=== PATIENT | female | born 1970 | race African-American/Black ===

== ENCOUNTER 2020-01-31 13:10 | Emergency (ER) | payer OTHER, SELFPAY ==
--- NOTE | ~2020-01-31 | XR_ITS ---
XR abdomen/kub 1V DATE: 01/31/2020 14:50 INDICATION: Right abdominal pain. Nausea and vomiting. TECHNIQUE: AP projection, 2 views COMPARISON: 02/20/2006 KUB FINDINGS: IUD overlies the pelvis. No bowel obstruction. The psoas shadows are intact. No viscerom egaly is detected. No apparent urinary tract calcification. No other significant abnormal calcificati on including any calcified appendicolith. Included skeletal structures are unremarkable. The lung bases appear clear. Heart size appears normal. IMPRESSION: IUD Nonspecific abdomen Reviewed, dictated and finalized at [facility]. Reviewed, dictated and finalized at location [facility]. IMPRESSION: IUD Nonspecific abdomen
[2020-01-31 13:31] VITALS: BP 149/93; PULSE 71; RESP 18; TEMP 36.3; O2SAT 100
--- NOTE | 2020-01-31 14:53 | ED.GENADULT ---
HPI - General Adult General Chief complaint: Abdominal Pain Stated complaint: stomach cramps,nausea Time Seen by Provider: 01/31/20 14:53 History of Present Illness HPI narrative: 49-year-old -[place] female presents with complaints of diffused RT abdomen pain with nausea and vomiting for the past 7 hours. Tylenol at noon without relief. Pain increased throughout the day with ball of cramps to right upper quadrant radiating to back intermittently. No significant pelvic pain. No vaginal discharge. No concerns for a STD. No fever or chills. No flank pain. Exacerbating factors consist of eating and drinking. Denies dysuria, hematuria, and vaginal bleeding. No blood in stool, and constipation. Last BM was 01/31/20, small amount and 01/30/04 normal per [place]. No cough or dyspnea. Denies chest pain, back pain, headache, and dizziness. Urine output within normal limits. LPM, unknown due to IUD in place. The patient reports she have not been diagnosed with COVID-19. The patient reports she is not waiting for the results of a COVID-19 lab test. The patient reports she do not have fever, chills, weakness, fatigue, or myalgia. The patient reports she do not have a new or worsening cough or shortness of breath. Denies chest pain. The patient reports she do not have any rhinorrhea, congestion, sore throat, and diarrhea. Denies recent traveling. Denies concerns for COVID-19 or exposures been home since [id number] order except for essential household needs, working, and return home. At this time, patient is not suspected of having COVID-19. Some parts of this dictation were generated by voice recognition software and may contain typographical and/or grammatical inaccuracies. Related Data Home Medications Medication Instructions Recorded Confirmed azelastine 137 mcg (0.1 %) nasal 137 mcg NASAL Q12H 09/17/19 spray aerosol cetirizine 10 mg tablet 10 mg PO DAILY 09/17/19 fluticasone propionate 50 1 spray NASAL BID 09/17/19 mcg/actuation nasal spray,suspension hydralazine 25 mg tablet 25 mg PO TID 09/17/19 metoprolol tartrate 25 mg tablet 25 mg PO DAILY 09/17/19 09/17/19 spironolactone 25 mg tablet 25 mg PO DAILY 09/17/19 09/17/19 irbesartan-hydrochlorothiazide tablet 01/31/20 losartan-hydrochlorothiazide tablet 01/31/20 meloxicam 01/31/20 rosuvastatin mg 01/31/20 sitagliptin-metformin [Janumet] tablet 01/31/20 Allergies Allergy/AdvReac Type Severity Reaction Status Date / Time Penicillins Allergy Mild hives Verified 09/17/19 13:28 Review of Systems Review of Systems: Narrative: CONSTITUTIONAL: Denies fever, chills, sweats. EYES: Denies visual changes, redness, discharge. ENT: Denies rhinorrhea, congestion, sore throat, otalgia. CARDIOVASCULAR: Denies chest pain, palpitations, edema. RESPIRATORY: Denies dyspnea, wheezing, cough. GASTROINTESTINAL: Complains of diffused RT abdominal pain, nausea, vomiting. Denies diarrhea. GENITOURINARY: Denies dysuria, hematuria, abnormal discharge. SKIN: Denies rash or itching. MUSCULOSKELETAL: Denies acute back pain, joint pain, or myalgia. NEUROLOGIC: Denies numbness or focal weakness. PSYCHIATRIC: Denies anxiety or depression. All other systems reviewed are negative, except as documented in HPI and below. [facility] Past Medical History Medical History (Updated 02/01/20 @ 00:01 by Wagner Baptiste) Benign reactive hypertension Borderline type 2 diabetes mellitus Mixed hyperlipidemia MVP (mitral valve prolapse) Surgical History Surgical History (Updated 01/31/20 @ 15:35 by RITA Peña) No significant past surgical history Family History Family History Father Hypertension Family history of lung cancer, Onset Age: 56 Patient's father is Mother Hypertension Sibling Family history of diabetes mellitus in first degree relative Grandparent Family histo
[2020-01-31] MEDS: ONDANSETRON HCL ODT 4 MG TABLET PO (15:09)
[2020-01-31] MEDS: KETOROLAC (*BKC) 60 MG/2 ML VIAL IM (15:31)
[2020-01-31 15:38] LABS: Glucose Point of Care 227 (65-105)
--- NOTE | 2020-01-31 16:28 | PC.NURSE ---
[facility] pharmacy called and rx ordered.
== END 2020-01-31 16:14 | disposition home or self-care (01) ==
PROVIDERS: Emergency Provider Nurse Practitioner Family; PCP Family Medicine
DX: K52.9 Noninfective gastroenteritis and colitis, unspecified (principal); R10.84 Generalized abdominal pain; I10 Essential (primary) hypertension; R73.03 Prediabetes; E78.2 Mixed hyperlipidemia; I34.1 Nonrheumatic mitral (valve) prolapse
CPT/HCPCS: 74018; 81003; 82948; 96372; 99213; A9270; G0463; J1885

== ENCOUNTER 2020-09-11 11:00 | Outpatient (RCR) | payer OTHER, SELFPAY ==
[2020-09-11 11:07] VITALS: BMI 47.3
[2020-09-11 12:15] VITALS: BMI 47.3
== END 2020-11-24 14:06 | disposition home or self-care (01) ==
LOC: ANHDMC 11:00
PROVIDERS: PCP Family Medicine; Visit Provider Family Medicine
DX: E11.65 Type 2 diabetes mellitus with hyperglycemia (principal); Z71.89 Other specified counseling; Z71.3 Dietary counseling and surveillance
CPT/HCPCS: 97802; G0108

== ENCOUNTER 2020-10-13 08:57 | Outpatient (CLI) | payer OTHER, SELFPAY ==
--- NOTE | ~2020-10-13 | MM_ITS ---
EXAMINATION: MM screening shellie BI w perez HISTORY: Screening TECHNIQUE: Craniocaudal and mediolateral oblique 3-D tomosynthesis images were obtained and synthetic 2-D images were generated. CAD analysis was submitted and interpreted. COMPARISON: Comparison to multiple prior studies sequentially, with oldest reviewed study dated 03/25. BREAST PARENCHYMAL COMPOSITION: The breasts are heterogenously dense, which may obscure small masses. FINDINGS: There is no evidence of suspicious mass, calcification, or architectural distortion to sugg est malignancy in either breast. There has been no suspicious interval change. IMPRESSION: 1. No mammographic evidence of malignancy. 2. Recommend routine screening mammography in one year. BI-RADS Category 1: Negative Reviewed, dictated and finalized at location [facility]. [employer] [employer]FFER
== END 2020-10-13 08:58 | disposition home or self-care (01) ==
LOC: ANHIMG 09:01
PROVIDERS: PCP Family Medicine; Visit Provider Family Medicine
DX: Z12.31 Encounter for screening mammogram for malignant neoplasm of breast (principal)
CPT/HCPCS: 77063; 77067

== ENCOUNTER 2021-03-31 12:24 | Outpatient (RCR) | payer OTHER, SELFPAY ==
[2021-03-31 12:51] VITALS: BMI 44.6
[2021-03-31 12:52] VITALS: BMI 44.6
== END 2021-06-24 11:51 | disposition home or self-care (01) ==
LOC: ANHDMC 12:24
PROVIDERS: PCP Family Medicine; Visit Provider Family Medicine
DX: E11.65 Type 2 diabetes mellitus with hyperglycemia (principal); Z71.3 Dietary counseling and surveillance
CPT/HCPCS: 97803

== ENCOUNTER 2021-08-17 01:35 | Day surgery (SDC) | payer OTHER, SELFPAY ==
[2021-08-07 09:30] VITALS: BMI 43.7
--- NOTE | 2021-08-14 18:54 | WPDANESEPPF ---
Anes - Initial Pre Proc Eval Procedure: Operation Date: 08/17/21 08:00 Proposed Procedures p Screening Colonoscopy - Joseph Melara MD Date/Time: 08/14/21 18:54 Surgeon: Joseph Melara MD Pre Op Diagnosis: neoplasm screening Patient Data Age: 50 Gender: F Height: 1.68 m Weight: 122.8 kg Allergies Allergy/AdvReac Type Severity Reaction Status Date / Time Penicillins Allergy Intermediate Hives Verified 08/17/21 06:51 Home Medications Medication Instructions Recorded Confirmed Type losartan 100 1 tablet PO DAILY #90 tablet 10/03/20 08/17/21 Rx mg-hydrochlorothiazide 12.5 mg tablet blood sugar diagnostic #100 ea 11/24/20 08/17/21 Rx ergocalciferol (vitamin D2) 1,250 1,250 mcg PO WEEKLY #12 cap 04/06/21 08/17/21 Rx mcg (50,000 unit) capsule hydralazine 25 mg tablet 25 mg PO BID #180 tablet 04/06/21 08/17/21 Rx naproxen 500 mg tablet 500 mg PO BID PRN #60 tablet 04/06/21 08/17/21 Rx rosuvastatin 10 mg tablet 10 mg PO DAILY #90 tablet 04/06/21 08/17/21 Rx sitagliptin 50 mg-metformin 500 mg See Rx Instructions .ROUTE 06/09/21 08/17/21 Rx tablet .COMPLEX #180 tablet dulaglutide 1.5 mg/0.5 mL 1.5 mg SUBCUT WEEKLY 90 Days #6.5 06/23/21 08/17/21 Rx subcutaneous pen injector ml empagliflozin 10 mg tablet 10 mg PO DAILY #90 tablet 06/23/21 08/17/21 Rx Patient hx anesthesia problems: none Family hx anesthesia problems: none Results Review: All pre-operative results and documents have been reviewed as part of the pre-operative evaluation. [facility] Past Medical History Medical History Benign reactive hypertension Borderline type 2 diabetes mellitus Extreme obesity Mixed hyperlipidemia Morbid (severe) obesity due to excess calories MVP (mitral valve prolapse) Type 2 diabetes mellitus with hyperglycemia Surgical History Surgical History No significant past surgical history Family History Family History Father Hypertension Family history of lung cancer, Onset Age: 56 Patient's father is Mother Hypertension Sibling Family history of diabetes mellitus in first degree relative Grandparent Family history of malignant neoplasm of ovary, Onset Age: 82 Other Cerebrovascular accident Social History Social History (Updated 04/06/21 @ 09:48 by Yandy Neff) Social History: Single Smoking status: Never smoker Second hand tobacco smoke exposure: No Alcohol intake: current Drinks per week: 2 Alcohol use details: 1-2 glasses of wine weekly Substance use: never Substance use type: does not use Living arrangements: with family Additional living arrangements comments: son lives with her Gender identity (if verbalized by the patient): Female Sexual Orientation (if Verbalized by the Patient): Straight or Heterosexual Spiritual care concerns: No Anes - Eval Final PreProcedure Day of Procedure 08/14/21 18:54 Patient weight: morbidly obese Heart: regular rate and rhythm Lungs: clear to auscultation and normal air movement Airway: Mallampati scale class II Neurological: alert and oriented Last oral intake: >/= 8 hours ASA classification: III Emergent: no Anesthetic plan: proceed Anesthesia type and monitoring: general GIVS and standard monitoring Results Review: All pre-operative results and documents have been reviewed as part of the pre-operative evaluation. Informed Consent: The patient's anesthetic plan and its attendant risks and benefits were discussed with the patient/family/POA. Questions were solicited and answers provided to the satisfaction of the patient/family/POA.
[2021-08-17 06:40] VITALS: BP 162/106; PULSE 81; RESP 18; TEMP 36.5; O2SAT 100; BMI 44.5
[2021-08-17] MEDS: LACTATED RINGERS 1,000 ML 150 ML IV CONT (07:06)
[2021-08-17 07:07] LABS: Glucose Point of Care 124 mg/dl (65-105)
--- NOTE | 2021-08-17 08:05 | PM.HPGS ---
History of Present Illness History of Present Illness Consent: Risks, benefits, and alternatives have been discussed and questions answered. Patient agrees to proceed with procedure. Chief complaint: neoplasm screening Narrative: Jose Solorio is a 50 year old female here for first screening colonoscopy Review of Systems Constitutional: Constitutional: Denies headache(s) and Denies weakness Eyes: Eyes: Denies blurry vision ENT: Reports Normal hearing present, Denies headache(s) and Denies neck pain Cardiovascular: Cardiovascular: Denies chest pain and Denies dyspnea Respiratory: Respiratory: Denies dyspnea Gastrointestinal: Gastrointestinal: Reports no additional gastrointestinal complaints Genitourinary: Genitourinary: Denies dysuria Musculoskeletal: Musculoskeletal: Denies neck pain Integumentary/Breasts: Skin/Breast: Denies dry skin Neurologic: Reports Normal hearing present, Denies headache(s) and Denies weakness Psychiatric: Psychiatric: Denies anxiety Endocrine: Endocrine: Denies change in body appearance Hematologic/Lymphatic: Hematologic/Lymphatic: Denies easy bleeding Allergic/Immunologic: Allergic/Immunologic: Denies urticaria PMFSH Past Medical History Medical History Benign reactive hypertension Borderline type 2 diabetes mellitus Extreme obesity Mixed hyperlipidemia Morbid (severe) obesity due to excess calories MVP (mitral valve prolapse) Type 2 diabetes mellitus with hyperglycemia Surgical History Surgical History No significant past surgical history Family History Family History Father Hypertension Family history of lung cancer, Onset Age: 56 Patient's father is Mother Hypertension Sibling Family history of diabetes mellitus in first degree relative Grandparent Family history of malignant neoplasm of ovary, Onset Age: 82 Other Cerebrovascular accident Social History Social History (Updated 04/06/21 @ 09:48 by Yandy Neff) Social History: Single Smoking status: Never smoker Second hand tobacco smoke exposure: No Alcohol intake: current Drinks per week: 2 Alcohol use details: 1-2 glasses of wine weekly Substance use: never Substance use type: does not use Living arrangements: with family Additional living arrangements comments: son lives with her Gender identity (if verbalized by the patient): Female Sexual Orientation (if Verbalized by the Patient): Straight or Heterosexual Spiritual care concerns: No Meds Home Medications and Allergies Home Medications Medication Instructions Recorded Confirmed Type losartan 100 1 tablet PO DAILY #90 tablet 10/03/20 08/17/21 Rx mg-hydrochlorothiazide 12.5 mg tablet blood sugar diagnostic #100 ea 11/24/20 08/17/21 Rx ergocalciferol (vitamin D2) 1,250 1,250 mcg PO WEEKLY #12 cap 04/06/21 08/17/21 Rx mcg (50,000 unit) capsule hydralazine 25 mg tablet 25 mg PO BID #180 tablet 04/06/21 08/17/21 Rx naproxen 500 mg tablet 500 mg PO BID PRN #60 tablet 04/06/21 08/17/21 Rx rosuvastatin 10 mg tablet 10 mg PO DAILY #90 tablet 04/06/21 08/17/21 Rx sitagliptin 50 mg-metformin 500 mg See Rx Instructions .ROUTE 06/09/21 08/17/21 Rx tablet .COMPLEX #180 tablet dulaglutide 1.5 mg/0.5 mL 1.5 mg SUBCUT WEEKLY 90 Days #6.5 06/23/21 08/17/21 Rx subcutaneous pen injector ml empagliflozin 10 mg tablet 10 mg PO DAILY #90 tablet 06/23/21 08/17/21 Rx Allergies Allergy/AdvReac Type Severity Reaction Status Date / Time Penicillins Allergy Intermediate Hives Verified 08/17/21 06:51 Vital Signs Vital Signs - 24 hr 08/17/21 06:40 Temperature 97.7 F Pulse Rate 81 Respiratory Rate 18 Blood Pressure 162/106 H Pulse Oximetry 100 Exam Const: General: comfortable and no acute distress HE
[2021-08-17 08:32] VITALS: BP 152/98; PULSE 87; RESP 21; O2SAT 99
[2021-08-17 08:42] VITALS: BP 156/100; PULSE 74; RESP 21; O2SAT 100
[2021-08-17 08:52] VITALS: BP 170/99; PULSE 67; RESP 18; O2SAT 100
== END 2021-08-17 09:02 | disposition home or self-care (01) ==
PROVIDERS: PCP Family Medicine; Visit Provider Internal Medicine Gastroenterology
PROC: 0DJD8ZZ Inspection of Lower Intestinal Tract, Via Natural or Artificial Opening Endoscopic (ICD-10-PCS; CPT 45378; principal; 2021-08-17 08:00)
DX: Z12.11 Encounter for screening for malignant neoplasm of colon (principal); K64.8 Other hemorrhoids; I10 Essential (primary) hypertension; I34.1 Nonrheumatic mitral (valve) prolapse; E78.5 Hyperlipidemia, unspecified; E11.65 Type 2 diabetes mellitus with hyperglycemia; E66.01 Morbid (severe) obesity due to excess calories
CPT/HCPCS: 45378; 82948; J2704; J7120

== ENCOUNTER → 2021-12-14 10:10 | Outpatient (CLI) | payer OTHER, SELFPAY ==
--- NOTE | ~2021-12-14 | US_ITS ---
EXAMINATION: US thyroid DATE: 12/14/2021 10:27 INDICATION: Nontoxic goiter, unspecified. TECHNIQUE: Multiple ultrasound images of the thyroid were obtained. COMPARISON: Thyroid ultrasound 05/26/2016 FINDINGS: The right thyroid lobe measures 5.5 x 2.6 x 2.6 cm. The left thyroid lobe measures 5.7 x 2.6 x 2.1 c m. In the right thyroid lobe, there is a 7 mm solid, hypoechoic, hvbxx-qqsr-kqiu nodule with ill-def ined margin without echogenic foci (TI-RADS TR4). In the left thyroid lobe, there is a 7 mm solid, hy poechoic, twtrd-fbmj-exow nodule with smooth margin without echogenic foci (TR4). In the left thyroid lobe, there is a 5 mm solid, hypoechoic, kofol-ttmg-mnan nodule with ill-defined margin without echo genic foci (TR4). IMPRESSION: 1. Small thyroid nodules, likely not clinically significant. No follow-up is needed. Reviewed, dictated and finalized at location B. IMPRESSION: 1. Small thyroid nodules, likely not clinically significant. No follow-up is ne eded.
== END ==
PROVIDERS: Visit Provider Nurse Practitioner Gerontology
DX: E04.2 Nontoxic multinodular goiter (principal)
CPT/HCPCS: 76536

== ENCOUNTER 2022-01-12 08:53 | Outpatient (CLI) | payer OTHER, SELFPAY ==
--- NOTE | ~2022-01-12 | US_ITS ---
EXAMINATION:US venous doppler LE RT INDICATION:Right leg pain and swelling TECHNIQUE: Multiple grayscale, color flow and Doppler images of the right lower extremity deep venous systems were obtained and reviewed. COMPARISON:No prior studies for comparison. FINDINGS: The common femoral, superficial femoral and popliteal veins demonstrate normal respiratory variation, augmentation and compressibility. Color flow is also seen within the posterior tibial, pe roneal, greater saphenous and profunda veins. There is mild subcutaneous edema. IMPRESSION: 1: No lower extremity deep venous thrombosis. Reviewed, dictated and finalized at location A.
== END 2022-01-12 08:54 | disposition home or self-care (01) ==
PROVIDERS: PCP Family Medicine; Visit Provider Nurse Practitioner Gerontology
DX: M79.601 Pain in right arm (principal); R60.0 Localized edema
CPT/HCPCS: 93971

== ENCOUNTER 2022-05-05 07:46 | Outpatient (CLI) | payer OTHER, SELFPAY ==
--- NOTE | ~2022-05-05 | MM_ITS ---
EXAMINATION: MM screening shellie BI w perez HISTORY: Screening mammogram TECHNIQUE: Craniocaudal and mediolateral oblique 3-D tomosynthesis images were obtained and synthetic 2-D images were generated. CAD analysis was submitted and interpreted. COMPARISON: 10/13/2020 bilateral screening mammogram 04/18/2017 diagnostic left mammogram and limited left breast ultrasound 04/11/2017 bilateral screening mammogram BREAST PARENCHYMAL COMPOSITION: There are scattered areas of fibroglandular density. FINDINGS: There is no evidence of suspicious mass, calcification, or architectural distortion to sugg est malignancy in either breast. There has been no suspicious interval change. IMPRESSION: 1. No mammographic evidence of malignancy. 2. Recommend routine screening mammography in one year. BI-RADS Category 1: Negative Reviewed, dictated and finalized at location A.
== END 2022-05-05 07:47 | disposition home or self-care (01) ==
PROVIDERS: PCP Family Medicine; Visit Provider Family Medicine
DX: Z12.31 Encounter for screening mammogram for malignant neoplasm of breast (principal)
CPT/HCPCS: 77063; 77067

== ENCOUNTER 2022-08-24 09:18 | Outpatient (CLI) | payer OTHER, SELFPAY ==
[2022-08-24 10:09] LABS: Anion Gap 4 mmol/L (8-16); Blood Urea Nitrogen 10 mg/dL (7-17); Calcium 9.5 mg/dL (8.4-10.2); Carbon Dioxide 31 mmol/L (22-30); Chloride 100 mmol/L (98-107); Estimated Glomerular Filt Rate > 60; Glucose 122 mg/dL (65-110); Potassium 3.7 mmol/L (3.4-5.0); Sodium 135 mmol/L (137-145)
== END 2022-08-24 09:19 | disposition home or self-care (01) ==
PROVIDERS: Anesthesiology; PCP Family Medicine; Visit Provider Podiatrist Foot & Ankle Surgery
DX: Z01.818 Encounter for other preprocedural examination (principal); I10 Essential (primary) hypertension
CPT/HCPCS: 36415; 80048

== ENCOUNTER 2022-08-27 00:49 | Day surgery (SDC) | payer OTHER, SELFPAY ==
--- NOTE | 2022-08-20 09:24 | PC.NURSE ---
Report to the Outpatient Waiting Room, entrance under the green pavilion located off [facility], at time _0600_ on date _08/27/22. Planned Procedure Time: __0730 _. Time changes happen often and if your time is changed the preop area will call you the afternoon before. - You and your visitor will be asked to self-screen and do not enter if you have any COVID symptoms. - Only one visitor is requested with a max of two and NO children visitors are allowed at this time. - The patient visitor may be requested to leave or wait in car when not with patient due to distancing restrictions. - A mask is optional within the hospital. Patients may have clear liquids (water, carbonated beverages, clear teas, apple juice) until 3 hours prior to surgery with a maximum of 20 ounces. - No food from midnight until time of surgery - Infants may have breast milk until 4 hours before surgery, infant formula 6 hours prior to surgery. - Children will be allowed to drink immediately following surgery. If applicable, please bring a bottle or sippy cup to assist with drinking. Juice, water, soda, and popsicles are readily available. For infants on formula, please bring formula the day of surgery. Pacifiers are allowed. Take the following medications with a SIP of water the morning of surgery: __AMLODIPINE Medications to discontinue per physician __NONE Date to take last dose Please no make-up, nail central african, hairspray, perfume, deodorant, or body powder the day of surgery. No jewelry (including any body piercings) or valuables the day of surgery, leave them at home. Please take a shower or bath the night before, or the morning of, surgery with an antibacterial soap. Wear comfortable, loose fitting clothing. Children are encouraged to wear pajamas. - Jewelry must be removed prior to entering the operating room. Rings and piercings that are not removed may be cut off. - The hospital will not accept responsibility for valuables. - Please leave all valuables, including medications, at home the day of surgery. If you are going home after surgery, a licensed patient transportation driver must drive you home. - NO public transportation without another adult if you receive anesthesia. - We recommend that an adult stay with you for 24 hours following discharge. - We also recommend that you do not drive, make important decision, drink alcoholic beverages, or take any drugs that were not prescribed by your health care provider for at least 24 hours after your discharge time. For Pediatric surgeries, we recommend two adults accompany the child home. Follow any additional instructions given to you from your surgeon. If you or anyone in your household have experienced Covid symptoms in the past week, please notify your surgeon or the nurse liaison at the phone number below for possible testing. Telephone instructions given to PATIENT___and asked if any additional questions and then verbalized understanding. Patient advised to call surgeon office or pre surgery nurse liaison [phone] if any additional questions.
[2022-08-20 09:36] VITALS: BMI 28.4
--- NOTE | 2022-08-26 08:51 | WPDANESEPPF ---
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 Patient Data Age: 51 Gender: F Height: 1.68 m Weight: 80 kg Allergies Allergy/AdvReac Type Severity Reaction Status Date / Time Penicillins Allergy Intermediate Hives Verified 08/27/22 06:20 Home Medications Medication Instructions Recorded Confirmed Type blood sugar diagnostic (OneTouch #100 ea 11/24/20 08/20/22 Rx Verio test strips) rosuvastatin 10 mg tablet See Rx Instructions .Route 11/25/21 08/27/22 Rx .COMPLEX #90 tabs nystatin-triamcinolone 100,000 1 applic topical TID PRN vaginal 03/18/22 08/20/22 Rx unit/g-0.1 % topical cream irritation #30 grams naproxen 500 mg tablet 500 mg PO BID PRN pain #60 tabs 05/30/22 08/27/22 Rx amlodipine 10 mg tablet (Norvasc) 10 mg PO DAILY #90 tabs 07/05/22 08/27/22 Rx losartan 100 1 tablet PO DAILY #90 tabs 07/05/22 08/27/22 Rx mg-hydrochlorothiazide 25 mg tablet benzonatate 200 mg capsule 200 mg PO TID #90 caps 07/16/22 08/27/22 Rx dulaglutide 3 mg/0.5 mL 3 mg (0.5 mL) subcut WEEKLY #2 mL 07/16/22 08/27/22 Rx subcutaneous pen injector (Trulicity) hydralazine 25 mg tablet 25 mg PO TID #270 tabs 07/16/22 08/27/22 Rx empagliflozin 10 mg tablet 10 mg PO DAILY #7 tabs 08/10/22 08/27/22 Rx (Jardiance) azelastine 137 mcg (0.1 %) nasal 137 mcg intranasal Q12H PRN 08/20/22 08/27/22 History spray aerosol Congestion fluticasone propionate 50 1 spray intranasal BID PRN 08/20/22 08/27/22 History mcg/actuation nasal Congestion spray,suspension Patient hx anesthesia problems: none Family hx anesthesia problems: none Results Review: All pre-operative results and documents have been reviewed as part of the pre-operative evaluation. [facility] Past Medical History Medical History (Updated 07/17/22 @ 01:52 by Naomi Harris MD) Abnormal mammogram of both breasts Acute non-recurrent maxillary sinusitis Acute vaginitis Benign reactive hypertension Borderline type 2 diabetes mellitus Carpal tunnel syndrome of right wrist Cellulitis and abscess of face Chronic GERD Cough Cutaneous abscess of face Essential (primary) hypertension Extreme obesity History of abnormal cervical Pap smear History of nephrolithotomy with removal of calculi Left upper quadrant pain Mixed hyperlipidemia Mixed hyperlipidemia Morbid (severe) obesity due to excess calories Morbid (severe) obesity due to excess calories Murmur, cardiac MVP (mitral valve prolapse) Neuropathy Neuropathy of right upper extremity Screening for colon cancer Staph skin infection Thyroid enlarged Type 2 diabetes mellitus Type 2 diabetes mellitus with hyperglycemia Urinary tract infection Urticaria Vitamin D deficiency Weight gain Surgical History Surgical History No significant past surgical history Family History Family History Father Hypertension Family history of lung cancer, Onset Age: 56 Patient's father is Mother Hypertension Sibling Family history of diabetes mellitus in first degree relative Grandparent Family history of malignant neoplasm of ovary, Onset Age: 82 Other Cerebrovascular accident Social History Social History (Updated 07/16/22 @ 09:54 by Yandy Neff) Social History: Single Smoking status: Never smoker Second hand tobacco smoke exposure: No Alcohol intake: current Drinks per week: 2 Alcohol use details: 1-2 glasses of wine weekly Substance use: never Substance use type: does not use Living arrangements: with family Additional living arrangements comments: son lives with her Gender identity
[2022-08-27] VITALS (9 sets, daily range): BP systolic 123–160; BP diastolic 69–95; PULSE 60–83; RESP 14–20; TEMP 36.2–36.3; O2SAT 97–100
--- NOTE | ~2022-08-27 | XR_ITS ---
EXAMINATION: XR surgery orthopedic DATE: 08/27/2022 08:24 INDICATION: Left first metatarsophalangeal arthrodesis TECHNIQUE: 2 fluoroscopic images of the left forefoot were obtained during procedure performed by Dr. Craven. Radiologist was not present for the imaging or procedure. The amount of fluoroscopy time u sed during this procedure was 0.1 minutes. COMPARISON: None. FINDINGS: First metatarsophalangeal arthrodesis with dorsal plate and screw fixation. Bunionectomy with centime ter medial head of the first metatarsal and expected overlying postoperative soft tissue gas. Bone al ignment remains essentially anatomic. No fracture. Remaining joint spaces are normal. IMPRESSION: 1. Expected appearance post bunionectomy and first metatarsophalangeal arthrodesis. Reviewed, dictated and finalized at location A. TENANCE FITTER IMPRESSION: 1. Expected appearance post bunionectomy and first metatarsophalangeal arthrode sis.
[2022-08-27] MEDS: LACTATED RINGERS 1,000 ML 30 ML IV CONT ×2 (06:30→08:41)
[2022-08-27 06:36] LABS: Glucose Point of Care 137 mg/dl (65-105)
--- NOTE | 2022-08-27 06:57 | WPDANESPNB ---
Anes - Peripheral Nerve Block Date/Time: 08/27/22 06:57 I have discussed with the patient/family/POA the placement of a peripheral nerve block for post-operative pain management, including associated risks, benefits, complications, and side effects. Alternative methods of post-operative analgesia were detailed. Questions were solicited and answers provided to the satisfaction of the patient/family/POA. Time-Out: A pre-procedural Time-Out was completed immediately before starting the procedure and confirmed: Patient Identification, Site, Procedure, Patient Position and the Availability of Requisite Equipment. Clinical Indications: Acute post-operative pain management requested by the operative surgeon. Nerve Block Insertion Note Anes-nerve block: posterior fossa sciatic left and adductor canal left Patient position: supine (for adductor canal) and other (right lateral for popliteal) Skin prep: chlorhexidine Needle: 22 gauge, stimulating, insulated echogenic needle. Needle length: 80 mm Technique: nerve stimulation lost at (mA) (for popliteal lost at 0.2) and ultrasound Injectate: bupivacaine 0.5% with epi 5 mcg/ml (20 mL for popliteal, 10 mL for adductor canal (no epi)) Observations: tolerated well Complications: none Procedure start time:: 732 Procedure end time:: 738
--- NOTE | 2022-08-27 07:13 | WPDHPUPDATE1 ---
History and Physical Update Update Date/Time: 08/27/22 07:13 History and Physical has been reviewed, including an updated exam of the patient. There are NO changes in the patient's condition. Risks, benefits, and alternatives have been discussed and questions answered. Patient agrees to proceed with procedure.
[2022-08-27] MEDS: ceFAZolin 2 GM/D5W 50 ML 2 GM/50 ML BAG IVPB (07:42)
--- NOTE | 2022-08-27 08:31 | W.PM.PROC2 ---
Procedure Note - Detailed Date of Procedure 08/27/22 Pre-op Diagnosis Arthritic bunion deformity left foot Post-op Diagnosis Same Procedure Performed Arthrodesis of the first metatarsal phalangeal joint left foot Surgeon Manuel Craven JR, DPM Anesthesia General and Regional Indications Painful first metatarsal phalangeal joint left foot Description of Procedure PROCEDURE IN DETAIL: Under mild sedation, the patient was brought into the operating room, placed on the operating table in supine position. A pneumatic ankle tourniquet was placed about the patient's ipsilateral ankle. Following general LMA, a regional nerve block was obtained about the foot and ankle. The foot was then scrubbed, prepped, and draped in the usual aseptic manner. An Esmarch bandage was then used to exsanguinate the patient's foot and the pneumatic ankle tourniquet was then inflated. Surgery began in the following manner: Attention was directed to the dorsal aspect of the 1st metatarsophalangeal joint where there was a large subcutaneous prominence noted along the dorsomedial aspect of the joint. The incision was made starting along the central shaft of the 1st metatarsal and extending just proximal to the interphalangeal joint of the hallux. The incision was continued deep down through the subcutaneous tissues using sharp and blunt dissection. All bleeders were cauterized as necessary. At this point, the dissection was continued down to the level of the periosteum and capsular structures overlying the 1st metatarsophalangeal joint. A full length periosteum and capsular incision was made just medial to the extensor hallucis longus tendon. The periosteum and capsular structures were freed from the base of the proximal phalanx as well as the distal 1st metatarsal. At this point, the 1st metatarsophalangeal joint was identified. There was almost complete loss of articular cartilage to the head of the 1st metatarsal as well as the base of the proximal phalanx. There was significant broadening and hypertrophy of the 1st metatarsophalangeal joint. Utilizing a sagittal bone saw, the hypertrophied 1st metatarsal was resected dorsally, medially, and laterally. A power bur was used to make sure that there were no rough edges and also to further debride the hypertrophic 1st metatarsal. Next, a rongeur was used to resect all hypertrophic base of the proximal phalanx. At this point, the reamer system for the [employer] CrossCHECK system was used to denude the degenerative cartilage from the head of the 1st metatarsal as well as the base of the proximal phalanx. The cartilage and subchondral bone were fully debrided utilizing the reamer system until healthy bleeding bone was noted. Next, a 2-0 drill bit was used to further fenestrate the head of the 1st metatarsal as well as the base of the proximal phalanx in order to allow fusion across the 1st metatarsophalangeal joint. Next, a 0.045 inch K-wire was driven from the medial aspect of the base of the proximal phalanx into the head of the 1st metatarsal in order to serve as temporary fixation. A large steel plate was used to make sure that the hallux was in a rectus position both in the sagittal plane as well as the frontal and transverse plane. Excellent position of the hallux was noted. Next, a CrossCHECK plate was placed atop the 1st metatarsophalangeal joint held in position with Vanzant wires. Utilizing standard principles and techniques, the 2 distal drill holes were drilled and two 2.7mm mm fully-threaded locking screws were driven from dorsal to plantar holding the distal aspect of the plate intact. At this point, a 3.5mm lag screw was driven from dorsal distal to proximal plantar across the 1st metatarsophalangeal joint through the plate system with excellent compression noted after careful removal of the olive wire and temporary fixation from the 1st metatarsophalangeal joint. Next, 2 proximal drill holes w
[2022-08-27 08:52] LABS: Glucose Point of Care 120 mg/dl (65-105)
[2022-08-27] MEDS: fentaNYL CITRATE INJ (*CRX) 100 MCG/2 ML VIAL 25 MCG IV PUSH ×4 (08:55→09:09)
[2022-08-27] MEDS: oxyCODONE HCL (*CRX) 5 MG TAB IR PO (10:15)
== END 2022-08-27 11:00 | disposition home or self-care (01) ==
PROVIDERS: PCP Family Medicine; Visit Provider Podiatrist Foot & Ankle Surgery
PROC: (CPT 28750; principal; 2022-08-27 07:30)
DX: M21.612 Bunion of left foot (principal); G89.18 Other acute postprocedural pain; I10 Essential (primary) hypertension; E78.2 Mixed hyperlipidemia; I34.1 Nonrheumatic mitral (valve) prolapse; E11.40 Type 2 diabetes mellitus with diabetic neuropathy, unspecified; Z79.84 Long term (current) use of oral hypoglycemic drugs; Z79.899 Other long term (current) drug therapy; E66.01 Morbid (severe) obesity due to excess calories; Z68.41 Body mass index [BMI] 40.0-44.9, adult
CPT/HCPCS: 28750; 64447; 64445; 36415; 80048; 82948; 99199; A9270; C1713; J0690; J1100; J2250; J2405; J2704; J3010; J7120

== ENCOUNTER 2024-06-20 08:56 | Outpatient (CLI) | payer OTHER, SELFPAY ==
--- NOTE | ~2024-06-20 | MM_ITS ---
EXAMINATION: MM screening shellie BI w perez HISTORY: Screening TECHNIQUE: Craniocaudal and mediolateral oblique 3-D tomosynthesis images were obtained and synthetic 2-D images were generated. CAD analysis was submitted and interpreted. COMPARISON: Comparison to multiple prior studies sequentially, with oldest reviewed study dated 10/2015. BREAST PARENCHYMAL COMPOSITION: Not dense: There are scattered areas of fibroglandular density. FINDINGS: There is no evidence of suspicious mass, calcification, or architectural distortion to sugg est malignancy in either breast. There has been no suspicious interval change. IMPRESSION: 1. No mammographic evidence of malignancy. 2. Recommend routine screening mammography in one year. BI-RADS Category 1: Negative Reviewed, dictated and finalized at location B.
== END 2024-06-20 08:57 | disposition home or self-care (01) ==
LOC: ANHIMG 08:57
PROVIDERS: PCP Family Medicine; Visit Provider Physician Assistant
DX: Z12.31 Encounter for screening mammogram for malignant neoplasm of breast (principal)
CPT/HCPCS: 77063; 77067

== ENCOUNTER 2025-05-27 07:04 | Outpatient (CLI) | payer OTHER, SELFPAY ==
--- NOTE | ~2025-05-27 | XR_ITS ---
Examination: XR hip LT 2V w AP pelvis Clinical History: M54.10 - Radiculopathy, site unspecified Comparison: None Technique: AP pelvis and 2 views left hip Findings/impression: 1. No fracture or dislocation left hip. 2. No significant degenerative changes either hip. 3. No pelvic fracture. 4. IUD. Reviewed, dictated and finalized at location R.
--- NOTE | ~2025-05-27 | XR_ITS ---
XR lumbar spine 2-3V Indication: M54.10 - Radiculopathy, site unspecified Comparison: None Findings: The vertebral heights are intact. No fracture or subluxation. Moderate loss of disc height L5-S1. Soft tissues unremarkable Impression: No acute abnormality. Reviewed, dictated and finalized at location P. Impression: No acute abnormality.
== END 2025-05-27 07:05 | disposition home or self-care (01) ==
PROVIDERS: PCP Family Medicine
DX: M54.10 Radiculopathy, site unspecified (principal); M25.552 Pain in left hip; Z97.5 Presence of (intrauterine) contraceptive device
CPT/HCPCS: 72100; 73502